=== PATIENT | male | born 1995 | race Two or more races ===

== ENCOUNTER 2017-07-23 14:18 | Emergency (ER) | payer MEDICAID ==
[2017-07-23 14:24] VITALS: BP 135/76; PULSE 90; RESP 15; TEMP 98.6; O2SAT 96
[2017-07-23] MEDS ORDERED: AZITHROMYCIN 250 MG TAB PO ONE (15:22)
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
== END 2017-07-23 16:16 | disposition home or self-care (01) ==
DX: H66.006 Acute suppurative otitis media without spontaneous rupture of ear drum, recurrent, bilateral (principal)